=== PATIENT | female | born 1945 | race Caucasian/White ===

== ENCOUNTER → 2018-06-14 | Outpatient (CLI) | payer MEDICARE, OTHER ==
[~2018-06-14] MED LIST: BENAML20/5; KLOR CON 10 MEQ; LEVFLO500 PO; LEVSOD150; METO100ER; PHENA200 PO; RXPHEN200 PO; SIMV20; SPIHYD; VENL75
== END | disposition home or self-care (01) ==
LOC: LAB SHORT 07:31 → PLD 07:31
DX: D22.5 Melanocytic nevi of trunk (principal)
CPT/HCPCS: 88305